=== PATIENT | female | born 1935 | race Caucasian/White ===

== ENCOUNTER 2016-10-27 09:47 | Day surgery (SDC) | payer MEDICARE, MEDICAID ==
[2016-10-26 08:45] VITALS: BMI 41.1
--- OUTSIDE RECORDS SUMMARY | 2016-10-27 09:52 | XMS | Clinical Summary ---
:1935 Author Organization [facility] Address [address] [place] [address] Phone Care Team Providers Name Role Phone Asked, No Primary Care Provider Unavailable Allergies Active Allergy Reactions Severity Noted Date Comments Amoxicillin Diarrhea 09/06/2016 Current Medications Prescription Sig. Disp. Refills Start Date End Date Status amIODarone (PACERONE) Take 200 mg by Active 200 MG tablet mouth daily. aspirin (ECOTRIN) 81 MG Take 81 mg by Active enteric coated tablet mouth daily. calcitriol (ROCALTROL) Take 0.25 mcg by Active 0.25 MCG capsule mouth daily. digOXIN (LANOXIN) 125 Take 125 mcg by Active mcg tablet mouth daily. furosemide (LASIX) 40 Take 40 mg by Active mg tablet mouth 2 (two) times a day. lansoprazole (PREVACID) Take 30 mg by Active 30 MG capsule mouth daily. levothyroxine Take 125 mcg by Active (SYNTHROID, LEVOXYL) mouth daily. 125 mcg tablet metOLazone (ZAROXOLYN) Take 2.5 mg by Active 2.5 MG tablet mouth once a week. On Sunday potassium chloride 20 Take 20 mEq by Active mEq tablet extended mouth daily. release traMADol (ULTRAM) 50 mg Take 50 mg by Active tablet mouth every 8 (eight) hours as needed for moderate pain. warfarin (COUMADIN) 3 Take 3 mg by mouth Active MG tablet take as directed. Sunday, Sunday, Sunday, Sunday and Sunday. Except Sunday and is 1.5mg ferrous sulfate 325 (65 Take 325 mg by Active FE) MG tablet mouth daily with breakfast. atorvastatin (LIPITOR) Take 40 mg by Active 40 MG tablet mouth every morning. warfarin (COUMADIN) 3 Take 1.5 mg by Active MG tablet mouth 2 (two) times a week. On Sunday and only zinc oxide 20 % Apply topically 60 g 3 09/11/2016 10/11/2016 ointment daily for 30 days. 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 Overview: Added automatically from request for surgery [id number] Corevalve 29mm Resolved Problems Problem Noted Date Resolved Date Aortic valve stenosis 07/21/2016 08/17/2016 Aortic valve disorder 07/21/2016 08/17/2016 Encounters Date Type Specialty Care Team Description 09/06/2016 Hospital Encounter General Internal Obi, Monse, Cellulitis of lower - Medicine MD extremity, 09/11/2016 Nathanael, unspecified Jennifer Scott MD laterality (Primary Dx);Essential hypertension;CKD (chronic kidney disease), stage 3 (moderate);Cellulit is of right lower extremity;Status post transcatheteraortic valve replacement (TAVR) using bioprosthesis;S/P TAVR (transcatheter aortic valve replacement) 08/17/2016 Lab Lab Fracisco Pena Status post MD Wendie transcatheter aortic valve replacement (TAVR) using bioprosthesis 08/17/2016 Multidisciplinary Visit Cardiology Fracisco Pena S/P TAVR MD Wendie (transcatheter aortic valve replacement) (Primary Dx);Status post transcatheter aortic valve replacement (TAVR) using bioprosthesis 08/17/2016 Hospital Encounter Procedural Fracisco Pena Status post Cardiology MD Wendie transcatheter aortic valve replacement (TAVR) using bioprosthesis 08/17/2016 Procedure Pass Procedural Cardiology 08/17/2016 Surgery Procedural Fracisco Pena Cv rotational xray Cardiology MD Wendie [[id number] (CPT)] 08/15/2016 Orders Only Alin, Status post LARISA Esteves transcatheter aortic valve replacement (TAVR) using bioprosthesis from Last 3 Months Family History Medical History Relation Name Comments Emphysema Brother Myocarditis Father Heart failure Mother Relation Name Status Comments Brother Father Mother Social History Tobacco Use Types Packs/Day Years Used Date Never Smoker Alcohol Use Drinks/Week oz/Week Comments Yes once a week - wine Sex Assigned at Date Recorded Not on file Last Filed Vital Signs Vital Sign Reading Time Taken Blood Pressure 131/57 09/11/2016 3:32 PM CDT Pulse 60 09/11/2016 3:32 PM CDT Temperature 36.2 C (97.2 F) 09/11/2016 3:32 PM CDT Respiratory Rate 22 09/11/2016 3:32 PM CDT Oxygen Saturation 93% 09/11/2016 3:32 PM CDT Inhaled Oxygen Concentration - - Weight 119 kg (262 lb 9.6 oz) 09/11/2016 6:05 AM CDT Height 165.1 cm (5' 5") 09/06/2016 11:47 AM CDT Body Mass Index 43.7 09/11/2016 6:05 AM CDT Plan of Treatment Date Type Specialty Care Team Description 08/02/2017 Multidisciplinary Visit Cardiology Fracisco Pena MD [address] [facility] [address] [place] [address] Health Maintenance Due Date Last Done Comments ZOSTER VACCINE 1993 PNEUMOCOCCAL POLYSACCHARIDE VACCINE AGE 65 AND OVER 1998 PNEUMOCOCCAL-13 1998 INFLUENZA VACCINE 09/26/2016 Procedures Procedure Name Priority Date/Time Associated Diagnosis Comments ECHOCARDIOGRAM 2D Routine 08/17/2016 2:37 Aortic valve Results for this COMPLETE W MMODE PM CDT disorder procedure are in SPECTRAL COLOR DOPPLER S/P TAVR theresults (20218) (transcatheter section. aortic valve replacement) CV ROTATIONAL XRAY Routine 08/17/2016 1:30 Status post Results for this PM CDT transcatheter aortic procedure are in valve replacement theresults (TAVR) using section. bioprosthesis from Last 3 Months Results Prothrombin time with INR (09/11/2016 11:45 AM)Only the most recent of5 resultswithin the time period is included. Component Value Ref Range Prothrombin time 28.8(H) 12.0 - 15.0 sec INR 2.6 Comment: The International Normalized Ratio (INR) is a therapeutic monitoring tool for patients who are stable on oral anticoagulant therapy. An INR of 2.0-3.0 is suggested for deep vein thrombosis/pulmonary embolism. Specimen Performing Laboratory Blood [facility] DEPARTMENT OF PATHOLOGY [facility]OMIC MEDICINE [address] [place] [address] Estimated GFR (09/09/2016 11:30 AM)Only the most recent of2 resultswithin the time period is included. Component Value Ref Range GFR Non Af Amer 31(A) mL/min/1.73 m2 GFR Af Amer 37(A) mL/min/1.73 m2 Comment: Chronic kidney disease: <60 mL/min/1.73m2 Kidney failure: <15 mL/min/1.73m2 The estimated GFR is calculated from the IDMS-traceable Modification of Diet in Renal Disease Equation. The accuracy of the calculation is poor when the creatinine is normal. Calculated values >90 mL/min/1.73m2 are not reported. This equation has not been validated in children (<18 years), women, the elderly (>70 years), or ethnic groups other than Caucasians and Americans. Specimen Performing Laboratory Plasma specimen [facility] DEPARTMENT OF PATHOLOGY AND [facility] [address] [facility] [place] [address] Vancomycin level, trough (09/09/2016 11:30 AM) Component Value Ref Range Vancomycin, trough 12.0 ug/mL Comment: Therapeutic Ranges: Peak30.0 - 40.0 ug/mL Mlvgyz82.0 - 20.0 ug/mL Specimen Performing Laboratory Blood [facility] OF PATHOLOGY AND [facility] [address] [place] [address] Comprehensive metabolic panel (09/09/2016 11:30 AM)Only the most recent of2 resultswithin the time period is included. Component Value Ref Range Sodium 140 135 - 148 mEq/L Potassium 3.7 3.5 - 5.0 mEq/L Chloride 98(L) 99 - 109 mEq/L CO2 30 24 - 31 mEq/L Anion gap 12 7 - 15 mEq/L Comment: Starting from May , anion gap calculation no longer incorporates potassium. Please note the change. BUN 25(H) 8 - 24 mg/dL Creatinine 1.6(H) 0.5 - 1.5 mg/dL Glucose 101(H) 65 - 99 mg/dL Calcium 8.4(L) 8.6 - 10.6 mg/dL Protein 6.4 6.3 - 8.2 g/dL Albumin 3.0(L) 3.5 - 5.0 g/dL A/G ratio 0.9 0.7 - 3.8 Alkaline phosphatase 61 30 - 115 U/L AST 22 15 - 46 U/L ALT 23 10 - 55 U/L Total bilirubin 0.8 0.2 - 1.2 mg/dL Specimen Performing Laboratory Plasma specimen [facility]OLOG[facility]IC[facility] [address] [place] [address] US Extremity Limited Right (09/07/2016 9:08 PM) Specimen Performing Laboratory [facility] [address] [place] [address] Narrative EXAMINATION:US EXTREMITY LIMITED RIGHT CLINICAL HISTORY:Soft tissue swelling Right leg COMPARISON:None. TECHNIQUE: Limited sonographic evaluation was performed posterior to the right knee. IMPRESSION: 1.Limited sonographic evaluation was performed posterior to the right knee in the region of swelling. Exam was limited as the patient could not tolerate pressure by the ultrasound probe. 2.There does appear to be subcutaneous edema. No focal mass or fluid collection identified. The exam however is limited. If there is persistent clinical concern, a CT or MRI could be obtained. [facility]-[id number] Procedure Note Interface, Radiology Results Incoming - 09/08/2016 12:30 AM CDT EXAMINATION: US EXTREMITY LIMITED RIGHT CLINICAL HISTORY: Soft tissue swelling Right leg COMPARISON: None. TECHNIQUE: Limited sonographic evaluation was performed posterior to theright knee. IMPRESSION: 1. Limited sonographic evaluation was performed posterior to the rightknee in the region of swelling. Exam was limited as the patient could nottolerate pressure by the ultrasound probe. 2. There does appear to be subcutaneous edema. No focal mass or fluidcollection identified. The exam however is limited. If there is persistentclinical concern, a CT or MRI could be obtained. [facility]-[id number] Blood culture, aerobic& anaerobic (09/06/2016 1:10 PM)Only the most recent of2 resultswithin the time period is included. Component Value Ref Range Blood culture isolate No growth after 5 days of incubation. Comment: Specimen Information Specimen Source: Blood Specimen Site: Antecubital, left Specimen Performing Laboratory Blood - Antecubital, left [facility] DEPARTMENT OF PATHOLOGY AND GENOMIC MEDICINE [address] [place] [phone] CBC with platelet and differential (09/06/2016 12:45 PM) Component Value Ref Range WBC 5.79 4.50 - 11.00 k/uL RBC 3.23(L) 4.20 - 5.50 m/uL HGB 9.6(L) 12.0 - 16.0 g/dL HCT 31.1(L) 37.0 - 47.0 % MCV 96.3 82.0 - 100.0 fL MCH 29.7 27.0 - 34.0 pg MCHC 30.9(L) 31.0 - 37.0 g/dL RDW - SD 51.8 37.0 - 55.0 fL MPV 10.1 8.8 - 13.2 fL Platelet count 147(L) 150 - 400 k/uL Neutrophils 64.2 39.0 - 69.0 % Lymphocytes 16.4(L) 25.0 - 45.0 % Monocytes 13.8(H) 0.0 - 10.0 % Eosinophils 4.8 0.0 - 5.0 % Basophils 0.5 0.0 - 1.0 % Specimen Performing Laboratory Blood [facility] DEPARTMENT OF PATHOLOGY AND GENOMIC MEDICINE [address] [place] [address] Hemoglobin& hematocrit (08/17/2016 4:20 PM) Component Value Ref Range HGB 9.4(L) 12.0 - 16.0 g/dL HCT 30.2(L) 37.0 - 47.0 % Specimen Performing Laboratory Blood [facility] PATHOLOGY AND GENOMIC MEDICINE [address] [place] [address] B natriuretic peptide (08/17/2016 4:20 PM) Component Value Ref Range BNP 590(H) 0 - 100 pg/mL Specimen Performing Laboratory Blood [facility] PATHOLOGY AND [facility] MEDICINE [address] [place] [address] Hemoglobin, plasma (08/17/2016 4:20 PM) Component Value Ref Range Hemoglobin, plasma 1.3 0.0 - 9.7 mg/dL Comment: Performed by [employer] [employer], [address] [place] [id number] [email or web address], Anup Chan MD - Lab. Director Specimen Performing Laboratory Plasma specimen [address] [address] Echocardiogram complete w contrast and 3D if needed (08/17/2016 2:37 PM) Specimen Performing Laboratory [address] [address] Narrative [facility] Echocardiography Report Pat.Name:Lynn ROMERO.ID:[id number] St.Date: 08/17/2016 Refer.MD:FRACISCO PENA MD Exam Time: 2:14:00 PMStudy Type:Routine Echo Height:65inWeight:249lb BSA: 2.17 m2 DOBAge:1935,80Y Sex: FEMALEBP:149/67 HR:70 bpm Sonogrphr: KELVIN Nails FASE Pat. Stat.:OutpatientRoom:[place] [address] Study Status:Final Echo Event ID:[id number] Order ID:[id number] Reason for Study:Prosthetic valve-suspected dysfunction or change History / Clinical:Atrial Fibrillation, Chronic Renal Failure, Congestive Heart Failure, Coronary Artery Disease, Diabetes, Hypertension, Pulmonary Hypertension, Shortness of Breath, Valvular Heart Disease; Aortic Stenosis, Obesity Procedures:2D Echo, Colorflow Doppler Race:C SUMMARY: LV function is hyperdynamic. RV function is moderately depressed. Normal functioning AV prosthesis. Severe tricuspid regurgitation. High estimated PA pressure. FINDINGS: LV: LV size is normal. LV function is hyperdynamic. Overall wall motionis hyperdynamic. Septal motion is paradoxical secondaryto LBBB or conduction abnormality. RV: RV size is severely enlarged. A pacemaker wire is seen in theRV. RV function is moderately depressed. LA: LA volume is severely enlarged. RA: RA volume is severely enlarged. A pacemaker wire is seen. AO: Aortic root diameter is normal. DAT: No pericardial effusion. AV: Transcatheter bioprosthetic aortic valve. No evidence of aorticregurgitation. Normal prosthetic valve velocity and gradient.Transcatheter AV Doppler velocity index is 0.52 (normal>0.50). MV: Severe mitral annular calcification. Mild mitral regurgitation.No evidence of mitral stenosis. PV: Pulmonic valve not well seen. TV: Dilated tricuspid annulus. Severe tricuspid regurgitation Matthews: Diastolic dysfunction Grade II (Moderate): Impaired relaxationwith elevated LV filling pressures. Other:Estimated PA systolic pressure is 80 mmHg, assuming a mean RAPof 20 mmHg. Dilated, non collapsing IVC. MEASUREMENTS: 2D Parasternal Long Liberty LVOT 2 cmLA Ds5.1 cm LVIDd4.6 cmIndex 2.1 cm/m Ao An2 cm LVIDs3.1 cmAo Rtd 3.2 cm Index1.5 cm/m LV%fs 31.9 % LV Mass 303.7 g(87-129) IVSd 1.4 cmLVM Drdxo523 g/m2 LVPWd1.7 cmRWT0.8 LA Sng Plane LA Area 38 cm2(8.8-23.4) LA Vol 159.5 ml Index73.5 ml/m LA LngAx 7.7 cm RA Sng Plane RA Area 35.6 cm2(8.3-19.5) RA Vol 146.5 ml Index67.5 ml/m RA LngAx 7.2 cm DOPPLER AV For Flow/RENETTA AV pkVel 208.9 cm/s (100-170) AV AC/ET 0.3 AV mnVel 133.5 cm/Lorin TVI 39.1 cm AV pkPG 17.5 mmHgAVpkAcRt 3315.4 cm/s2 AV Mean G9 mmHgAV DeRt 713.8 cm/s2 AV AC 87 msec (83-118) AV Area1.6 cm2(3-5) AV ET293 msec LVOT For Flow LVOT Area3.1 cm2 LVOT SV 63.1 ml YQWLffGzj768.9 cm/sHR 60.6 bpm LVOTpkPG 6.2 mmHgLVOT CO 3.8 l/min LVOTmnPG 2.5 mmHgLVOT CI 1.8 l/m/m2 LVOT TVI20.1 cm MV For Flow/Valve Assess MV pkVel 171.1 cm/sMV Mean G 2.6 mmHg MV pkPG 11.7 mmHgMV TVI 37.7 cm Signed 08/18/2016 11:39 AM Alfonso Newman M.D. Procedure Note Interface, Radiology Results In - 08/18/2016 11:39 AM CDT [facility] Echocardiography Report Pat.Name: GALI ROMERO Pat.ID: [id number] St.Date: 08/17/2016 Refer.MD: FRACISCO PENA MD Exam Time: 2:14:00 PM Study Type:Routine Echo Height: 65in Weight: 249lb BSA: 2.17 m2 Age: 7 1935,80Y Sex: FEMALE BP: 149/67 HR: 70 bpm Sonogrphr: KELVIN Nails FASE Pat. Stat.:Outpatient Room: [place] [address] Study Status:Final Echo Event ID:[id number] Order ID: [id number] Reason for Study:Prosthetic valve-suspected dysfunction or change History / Clinical:Atrial Fibrillation, Chronic Renal Failure, Congestive Heart Failure, Coronary Artery Disease, Diabetes, Hypertension, Pulmonary Hypertension, Shortness of Breath, Valvular Heart Disease; Aortic Stenosis, Obesity Procedures:2D Echo, Colorflow Doppler Race: C SUMMARY: LV function is hyperdynamic. RV function is moderately depressed. Normal functioning AV prosthesis. Severe tricuspid regurgitation. High estimated PA pressure. FINDINGS: LV: LV size is normal. LV function is hyperdynamic. Overall wall motion is hyperdynamic. Septal motion is paradoxical secondary to LBBB or conduction abnormality. RV: RV size is severely enlarged. A pacemaker wire is seen in the RV. RV function is moderately depressed. LA: LA volume is severely enlarged. RA: RA volume is severely enlarged. A pacemaker wire is seen. AO: Aortic root diameter is normal. DAT: No pericardial effusion. AV: Transcatheter bioprosthetic aortic valve. No evidence of aortic regurgitation. Normal prosthetic valve velocity and gradient. Transcatheter AV Doppler velocity index is 0.52 (normal >0.50). MV: Severe mitral annular calcification. Mild mitral regurgitation. No evidence of mitral stenosis. PV: Pulmonic valve not well seen. TV: Dilated tricuspid annulus. Severe tricuspid regurgitation Matthews: Diastolic dysfunction Grade II (Moderate): Impaired relaxation with elevated LV filling pressures. Other: Estimated PA systolic pressure is 80 mmHg, assuming a mean RAP of 20 mmHg. Dilated, non collapsing IVC. MEASUREMENTS: 2D Parasternal Long Liberty LVOT 2 cm LA Ds 5.1 cm LVIDd 4.6 cm Index 2.1 cm/m Ao An 2 cm LVIDs 3.1 cm Ao Rtd 3.2 cm Index 1.5 cm/m LV%fs 31.9 % LV Mass 303.7 g (87-129) IVSd 1.4 cm LVM Index 140 g/m2 LVPWd 1.7 cm RWT 0.8 LA Sng Plane LA Area 38 cm2 (8.8-23.4) LA Vol 159.5 ml Index 73.5 ml/m LA LngAx 7.7 cm RA Sng Plane RA Area 35.6 cm2 (8.3-19.5) RA Vol 146.5 ml Index 67.5 ml/m RA LngAx 7.2 cm DOPPLER AV For Flow/RENETTA AV pkVel 208.9 cm/s (100-170) AV AC/ET 0.3 AV mnVel 133.5 cm/s AV TVI 39.1 cm AV pkPG 17.5 mmHg AVpkAcRt 3315.4 cm/s2 AV Mean G 9 mmHg AV DeRt 713.8 cm/s2 AV AC 87 msec (83-118) AV Area 1.6 cm2 (3-5) AV ET 293 msec LVOT For Flow LVOT Area 3.1 cm2 LVOT SV 63.1 ml LVOTpkVel 124.9 cm/s HR 60.6 bpm LVOTpkPG 6.2 mmHg LVOT CO 3.8 l/min LVOTmnPG 2.5 mmHg LVOT CI 1.8 l/m/m2 LVOT TVI 20.1 cm MV For Flow/Valve Assess MV pkVel 171.1 cm/s MV Mean G 2.6 mmHg MV pkPG 11.7 mmHg MV TVI 37.7 cm Signed 08/18/2016 11:39 AM Alfonso Newman M.D. ECG 12 lead (08/17/2016 2:30 PM) Component Value Ref Range Ventricular rate 61 Atrial rate 60 QRSD interval 186 QT interval 512 QTC interval 515 QRS axis 1 258 T wave axis 58 EKG impression Electronic ventricular pacemaker-In automated comparison with ECG of 20-DEC-2012 15:56,-No significant change was found- Specimen Performing Laboratory [facility] [address] [place] [address] Cv orthodontic lab technician procedure (08/17/2016 1:30 PM) Specimen Performing Laboratory [facility] [address] [place] [address] Narrative Orthogonal rotational X rays performed of the chest NO evidence of valve migration NO evidence of valve fracture from Last 3 Months Insurance Payer Benefit Plan / Group Subscriber ID Type Phone Address MEDICARE MEDICARE PART A AND B [id number] Medicare [place], [place] MEDICAID MEDICAID [id number] Medicaid
[2016-10-27 10:30] LABS: #Eosinphils 0.4 thou/uL (0.0-0.7); #Lymphocytes 1.2 thou/uL (1.20-3.40); #Monocytes 0.6 thou/uL (0.11-0.59); #Neutrophils 2.8 thou/uL (1.40-6.50); %Basophils 0.6 % (0.0-1.0); %Eosinophils 7.2 % (0.0-10.0); %Lymphocytes 24.8 % (21.0-51.0); %Monocytes 11.3 % (0.0-10.0); Hematocrit 34.3 % (36.0-47.0); Mean Platelet Volume 8.1 fL (7.4-10.4); Red Blood Cell (RBC) Count 3.44 mill/uL (4.20-5.40)
[2016-10-27 10:43] LABS: Anion Gap 14 mmol/L (10-20); BUN (Urea Nitrogen) 33 mg/dL (9.8-20.1); Calc. Creatinine Clearance 40 mL/min (70-130); Calcium 9.2 mg/dL (7.8-10.44); Carbon Dioxide 32 mmol/L (23-31); Chloride 100 mmol/L (98-107); Estimated GFR-MDRD 26
[2016-10-27] MEDS ORDERED: Diprivan 20 ML ONE (11:39)
[2016-10-27] MEDS ORDERED: Propofol 200 MG/20 ML VIAL ONE (11:59)
--- NOTE | 2016-10-27 16:06 | OP ---
DATE OF SERVICE: 10/27/2016 REASON FOR PROCEDURE: Ms. Romero is an 80-year-old woman with prior history of systolic heart failu re, BiV ICD in place, AV block who is here for cardioversion. ICD interrogated pre and post-proced ure and found to be adequate, also programmed stimulation with overdrive pacing with atrium was atte mpted. It is fair to terminate the atrial flutter. PROCEDURE: After adequate level of sedation achieved, a synchronized internal 35 joule shock prompt ly converted the patient back to sinus rhythm. CONCLUSION: Successful cardioversion. PLAN: Continue anticoagulation and a low dose amiodarone at this time. Routine followup in the off ice.
--- NOTE | 2016-10-27 16:08 | OP ---
This is an ICD interrogation and reprogramming of stress noninvasive programmed stimulation report. REASON FOR PROCEDURE: Ms. Romero is an 80-year-old woman with sustained atrial flutter since mid . ICD interrogation revealing longevity of battery about 14 months. Lead parameters are with 399 atri al, 323 ohms RV and 570 ohms LV impedance. The sensing is low and the atrium is 0.1 millivolts duri ng flutter and 0.6 millivolts, PVs are seen. RV is 90.3 millivolts. The capture thresholds are adequate somewhat elevated in the RV of 3.5 with 0.4 milliseconds. LV is 2.75 volts at 1 millisecond, RV is 1.5 volts at 0.4 milliseconds. The interrogation reveals sustained atrial flutter. Atrial overdrive pacing of the flutter was attempted with progressive shortening cycle length, fair to complete the patient back to sinus rhythm. Subsequent to that on internal 35 joule shock converted the patient back to sinus. CONCLUSION: 1. Successful cardioversion. 2. No success to atrial overdrive pacing. 3. Adequate functioning BiV ICD with lower atrial sensing, which might prevent future atrial tachyc ardia detection. 4. About 14 months longevity left. PLAN: Continue anticoagulation with Xarelto and routine follow up.
--- NOTE | 2016-10-27 16:47 | OP ---
DATE OF PROCEDURE: 10/27/2016 PROCEDURE: ICD interrogation and reprogramming, this is a noninvasive program stimulation report. REASON FOR PROCEDURE: Ms. Romero is an 80-year-old female with history of sustained atrial flutter who is here for conversion to sinus rhythm. She has been well anticoagulated. RESULTS: Interrogation of the device revealed a [employer]onic Viva Quad XT STAPLER HAND-D device battery longevity is about 14 months. Lead impedance of 309, 93, 23 and 70 ohms respectively. Capture thresholds are adequate at 1.5 volts, 3.5 volts and 2.75 volt respectively, sensing very low and the PV is only 0.1 millivolts during the atrial fibrillation, 0.6 millivolts after that in flutter. The interrogation of device reveals sustained atrial fibrillation/flutter since end of July. Following that, the was revealing atrial flutter about 320 milliseconds, progressive atrial burst pacing was performed which failed to convert the patient back to sinus rhythm. Subsequent to that the internal 35 joule shock was performed converting back to sinus rhythm. Finally the patient was reprogrammed with 70 beats per minute and max rate 120 beats per DDDR with mode switch on. CONCLUSION: 1. Successful cardioversion. 2. Suboptimal atrial sensing with lowest possible sensory setting, but otherwise adequate functioning ICD with 14 months long battery longevity estimated. 3. Subsequent cardioversion. Please see separate report. PLAN: Continue Xarelto. Routine followup in the office. TRAN
--- NOTE | 2016-10-31 18:24 | EKG ---
Test Reason : PREOP Blood Pressure : / mmHG Vent. Rate : 066 BPM Atrial Rate : 078 BPM P-R Int : 000 ms QRS Dur : 188 ms QT Int : 516 ms P-R-T Axes : 000 -30 081 degrees QTc Int : 540 ms AV sequential or dual chamber electronic pacemaker When compared with ECG of 03-MAY-2015 21:16, Vent. rate has increased BY 5 BPM Confirmed by WILL MAR (2) on 10/31/2016 6:23:48 PM Referred By: [email or web address] Confirmed By:WILL MAR
== END 2016-10-27 13:22 | disposition home or self-care (01) ==
LOC: CCL 09:47
PROVIDERS: ATTEND Internal Medicine Cardiovascular Disease
PROC: 5A2204Z Restoration of Cardiac Rhythm, Single (ICD-10-PCS; principal; 2016-10-27)
PROC: 4A023FZ Measurement of Cardiac Rhythm, Percutaneous Approach (ICD-10-PCS; 2016-10-27)
PROC: 4A0234Z Measurement of Cardiac Electrical Activity, Percutaneous Approach (ICD-10-PCS; 2016-10-27)
DX: I48.91 Unspecified atrial fibrillation (principal); I44.30 Unspecified atrioventricular block; I50.20 Unspecified systolic (congestive) heart failure; Z95.810 Presence of automatic (implantable) cardiac defibrillator; Z79.01 Long term (current) use of anticoagulants; Z79.899 Other long term (current) drug therapy; Z98.41 Cataract extraction status, right eye; Z98.42 Cataract extraction status, left eye; Z95.0 Presence of cardiac pacemaker; Z90.710 Acquired absence of both cervix and uterus; Z90.49 Acquired absence of other specified parts of digestive tract; Z88.8 Allergy status to other drugs, medicaments and biological substances; Z91.048 Other nonmedicinal substance allergy status
CPT/HCPCS: 80048; 85025; 92960; 93005; 93010; J2704

== ENCOUNTER 2017-05-25 06:48 | Emergency (ER) | payer MEDICARE, MEDICAID ==
[2017-05-25 07:42] LABS: Bilirubin Negative (Negative); Blood, Urine Moderate (Negative); Clarity CLEAR (Clear); Glucose, Urine (Dipstick) Negative (Negative); Leukocyte Moderate (Negative); Nitrite Negative (Negative); Protein, Urine (Dipstick) Negative (Neg-Trace); Specific Gravity, Urine 1.013 (1.002-1.036); pH, Urine 6.5 (5.0-9.0)
[2017-05-25 07:43] LABS: Hemoglobin 9.5 g/dL (12.0-16.0)
[2017-05-25 07:44] LABS: Bacteria/HPF 1+ HPF (None Seen); Hyaline Casts/LPF 0-3 HYALINE CAST LPF (0-3 Hyaline); Pathc Cast-AUWi Flag 0.14 (0-2.49); Squamous Epithelial None Seen HPF (0-3); WBC/HPF 21-50 HPF (0-3)
--- NOTE | 2017-05-25 11:21 | CON ---
DATE OF CONSULTATION: 05/25/2017 TIME OF EVALUATION: 09:10-09:30 LOCATION: [facility] in bed 7. REQUESTING PHYSICIAN: Emergency room physician front end developer. REASON FOR EVALUATION: Postmenopausal patient, sent here from [place] for evaluation of unexplained vaginal bleeding. PATIENT ALSO HAS A HANDWRITTEN CONSULT DONE AT BEDSIDE IN CHART HISTORY OF PRESENT ILLNESS: In brief, this is a patient, who was first seen in [place] earlier this morning for vaginal bleeding, which has been going on for about a week. During her evaluation in [place], a CT scan was done, which showed no vaginal masses or lesions. There was a question of an anterior pelvic/abdominal wall defect, which may be an anterior wall hernia. There was no evidence of soft tissue masses, otherwise. She states that she has had vaginal bleeding for the last week, but denies any trauma, fevers, sexual activity, or other findings. 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 She has had a hysterectomy in 1976 for heavy menstrual bleeding and is not on any vaginal or systemic estrogen therapy. REVIEW OF SYSTEMS: A complete review of systems was done and is otherwise negative unless specified in the HPI. She does have a pertinent positive, which is for bilateral lower extremity lymphedema and she sees a physician in [place] for this regularly. SOCIAL HISTORY: Negative for alcohol, tobacco, and drug use. PAST MEDICAL HISTORY: Negative for diabetes or hypertension. PAST OB HISTORY: She is a with 2 prior vaginal deliveries. GYNECOLOGICAL HISTORY: She has had a hysterectomy since 1976 for heavy menstrual bleeding. PAST SURGICAL HISTORY: Hysterectomy, appendectomy, cardiac valve replacement, and an implantable cardiac pacemaker. PHYSICAL EXAMINATION: VITAL SIGNS: Her pulse is 70 and her blood pressure is 105 over 60s. GENERAL: She is in no acute distress and she is resting well. ABDOMEN: Soft, nontender, and obese. On perineal inspection, there is dried blood covering the labia and mons. She has no active vaginal bleeding at this time. PELVIC: I recruited the help of 2 nurses at bedside, in the ER, to try to evaluate the patient. Exam was limited due to the patient's bilateral lower extremity lymphedema and arthritis, which made lithotomy position not possible. I used a lighted speculum to assess the vaginal sidewalls as well as the anterior and posterior vaginal wall, and I find no obvious area of bleeding or laceration. I find no masses. Because of the limitations of this exam, I performed a digital exam with 2-finger vaginal palpation and I find no masses palpable. EXTREMITIES: On physical exam, she has bilateral lower extremity lymphedema and her lower legs are wrapped due to what looks like stasis ulcers. RADIOLOGICAL STUDIES: Based on the CT scan in [place], the findings were as previously dictated with no vaginal or otherwise pelvic masses. LABORATORY ASSESSMENT: Her hemoglobin is 9.4, which is not much change from the first value of about 10.4 and this may represent dilutional change. She is nontachycardic. ASSESSMENT AND PLAN: This is an 81-year-old postmenopausal patient, not on estrogen therapy 1. Status post hysterectomy in the remote past, with unexplained vaginal bleeding. In [place], a Wilkinson catheter was placed with no obvious hematuria. A guaiac was also performed, which was negative, per [place]. Based on my cursory gynecological examination, I find no evidence of surgical remedy, which is needed at this time. Bleeding is unexplained based on my exam and may be a result of vaginal atrophy and small vaginal bleeding. I do not find any areas to cauterize or to treat. PLAN: 1. Based on the limitations of this exam and the fact that the patient is currently stable, I have recommended outpatient gynecology followup with either [facility] here in this area or with Anel Singleton ( [facility]) in [place]. My rationale for [facility] is at [facility], maybe better suited to evaluate this postmenopausal patient with unexplained bleeding. 2. I have explained this to the patient and she understands. 3. Exam and history was performed with a nurse participation in the room in the emergency department. 4. No laboratory data, cultures, or biopsies were sent off by me during this evaluation. TRAN
== END 2017-05-25 11:29 | disposition home or self-care (01) ==
LOC: ERS 06:48
DX: N95.0 Postmenopausal bleeding (principal); N39.0 Urinary tract infection, site not specified; D64.9 Anemia, unspecified; I48.91 Unspecified atrial fibrillation; I11.0 Hypertensive heart disease with heart failure; I50.9 Heart failure, unspecified; E78.5 Hyperlipidemia, unspecified; E66.9 Obesity, unspecified; Z79.01 Long term (current) use of anticoagulants
CPT/HCPCS: 36415; 81003; 81015; 85014; 85018; 99285

== ENCOUNTER 2017-12-22 16:33 | Emergency (ER) | payer MEDICARE, MEDICAID ==
[2017-12-22 17:16] LABS: INR-International Normal Ratio 2.1; Prothrombin Time 23.3 SEC (12.0-14.7)
[2017-12-22 17:17] LABS: PTT 42.5 SEC (22.9-36.1)
--- NOTE | 2017-12-22 18:40 | ULT ---
VENOUS DUPLEX SONOGRAM LEFT UPPER EXTREMITY: 12/22/17 HISTORY: Left arm pain and edema. FINDINGS: Good color and spectral doppler flow are present within the left internal jugular and subclavian vein s. The axial, brachial, cephalic, and basilic veins. No internal echoes are apparent. IMPRESSION: No sonographic evidence of DVT left upper extremity. POS: [facility]
[2017-12-22] MEDS ORDERED: Morphine 4 MG/ML VIAL ONE (19:03)
[2017-12-22] MEDS ORDERED: Ondansetron PF 4 MG/2 ML Vial ONE (19:03)
--- NOTE | 2017-12-22 19:17 | RAD ---
LEFT SHOULDER THREE VIEWS: 12/22/17 HISTORY: Left arm injury. FINDINGS: Elevation of the humeral head with near complete loss of the acromiohumeral distance. Acromioclavicul ar alignment is maintained. Moderate osteophytosis. No acute fracture, dislocation, or aggressive oss eous erosions. IMPRESSION: Chronic rotator cuff tear. Prominent degenerative changes. POS: [facility]
== END 2017-12-22 19:52 | disposition home or self-care (01) ==
LOC: ERS 16:33
DX: M19.012 Primary osteoarthritis, left shoulder (principal); L03.116 Cellulitis of left lower limb; M79.602 Pain in left arm; E66.9 Obesity, unspecified; I11.0 Hypertensive heart disease with heart failure; I50.9 Heart failure, unspecified; I25.2 Old myocardial infarction; M19.90 Unspecified osteoarthritis, unspecified site; E03.9 Hypothyroidism, unspecified; G47.30 Sleep apnea, unspecified; Z86.718 Personal history of other venous thrombosis and embolism; Z79.891 Long term (current) use of opiate analgesic; Z79.899 Other long term (current) drug therapy
CPT/HCPCS: 36415; 85610; 85730; 96374; 96375; J2270; J2405